=== PATIENT | female | born 1955 | race Caucasian/White ===

== ENCOUNTER 2017-12-23 07:17 | Day surgery (SDC) | payer OTHER ==
--- OUTSIDE RECORDS SUMMARY | 2017-12-23 07:22 | XMS REPORT | Continuity of Care Document ---
:1955 Author Organization Interface Problems Problem Status Onset Classification Date Comments Source Date Reported MENINGIOMA D32.0 Active 07/22/[address] GAMMA KNIFE Active 07/08/[address] LEFT NECK MASS Active 04/20/[address] R22.1 - Active 03/25/19 [facility] "LOCALIZED [address] SWELLING, MASS AND L" Hyperlipidemia Active Problem 07/30/2017 [facility], SHELBI Miller,[facility] Hypertension Active Problem 07/30/2017 [facility], SHELBI Miller,[facility] Pulmonary nodule Resolved Problem 07/30/2017 [facility], SHELBI Aleman,[facility] SHELBI Miller,[facility] Neck mass Active Problem 07/30/2017 [facility], [facility] SHELBI Miller,[facility] Depression Active Problem 07/30/2017 [facility], SHELBI Miller,[facility] Obesity Active Problem 07/30/2017 [facility], SHELBI Aleman,[facility] SHELBI Miller,[facility] Thyroid nodule Active Problem 07/30/2017 [facility], OPISimone Aleman,[facility] SHELBI Miller,[facility] Meningioma Active Problem 06/05/2016 SHELBI Aleman Medications Medication Details Route Status Patient Ordering Order Source Instructions Provider Date Sodium Chloride 0.154 1,000 mL, Inactive 07/26/ [facility] MEQ/ML Injectable Rate: 50 2017 Medical Solution ml/hr, [place] Infuse over: 20 hr, Route: IV, Dosing Weight 95.455 kg, Total Volume: 1,000, Priority: Routine, Start date: 07/26/16 11:18:00 CDT, Duration: 30 day, Stop date: 08/25/16 11:17:00 CDT Acetaminophen 325 MG 2 tab, Inactive 07/26/ [facility] / Hydrocodone Route: PO, 2017 Medical Bitartrate 5 MG Oral Drug Form: [place] Tablet TAB, Dosing Weight 95.455, kg, Q4H, PRN Pain Score 7-10, Start date: 07/26/16 11:18:00 CDT, Duration: 30 day, Stop date: 08/25/16 11:17:00 CDT Acetaminophen 325 mg, Inactive [facility] Route: PO, 2017 Medical Drug form: [place] TAB, Q4H, Dosing Weight 95.455, kg, PRN Pain Score 1-3, Start date: 07/26/16 11:18:00 CDT, Duration: 30 day, Stop date: 08/25/16 11:17:00 CDT Fentanyl 50 Inactive 07/26[facility] microgram, 2016 Medical Route: Center IVP, ONCALL, Dosing Weight 95.455, kg, Priority: Routine, Start date: 07/26/16 6:00:00 CDT, Duration: 1 doses or times Bacitracin 0.5 UNT/MG 1 appl, Inactive 07/26[facility] / Polymyxin B 10 Route: 2016 Medical UNT/MG Topical TOP, [place] O[facility]ment [facility] Drug form: OINT, Priority: Routine, Start date: 07/26/16 6:00:00 CDT, Duration: 1 doses or times Bupivacaine 30 mL, Inactive [facility] Hydrochloride 2.5 Route: 2017 Medical MG/ML / Epinephrine [facility] 0.005 MG/ML Dosing Injectable Solution Weight 95.455, kg, ONCALL, Start date: 07/26/16 6:00:00 CDT, Duration: 30 day, Stop date: 08/25/16 5:59:00 CDT Fentanyl 25 Inactive 07/26[facility] microgram, 2016 Medical Route: [place] IVP, Q1H, Dosing Weight 95.455, kg, PRN Pain Score 6-10, Priority: Routine, Start date: 07/26/16 5:20:00 CDT, Duration: 1 doses or times, Stop date: Limited # of times Dexamethasone 6 mg, Inactive 07/26[facility] Route: 2016 Medical IVP, Drug Center form: INJ, ONCE, Dosing Weight 95.455, kg, Start date: 07/26/16 5:20:00 CDT, Stop date: 07/26/16 5:20:00 CDT Promethazine 25 mg, Inactive 07/26[facility] Route: 2017 Medical IVPB, Q6H, Center Dosing Weight 95.455, kg, PRN Nausea & Vomiting, Start date: 07/26/16 5:20:00 CDT, Duration: 30 day, Stop date: 08/25/16 5:19:00 CDT Ondansetron 4 mg, Inactive 07/26[facility] Route: 2016 Medical IVP, Drug Center form: INJ, Q6H, Dosing Weight 95.455, kg, PRN Nausea & Vomiting, Start date: 07/26/16 5:20:00 CDT, Duration: 30 day, Stop date: 08/25/16 5:19:00 CDT Famotidine 20 mg, Inactive 07/26[facility] Route: 2016 Medical IVP, Drug Center form: INJ, ONCE, Dosing Weight 95.455, kg, Start date: 07/26/16 5:20:00 CDT, Stop date: 07/26/16 5:20:00 CDT Sodium Chloride 0.154 1,000 mL, Inactive [facility] MEQ/ML Injectable Rate: [address] [place] [address] Solution ml/hr, [place] Infuse over: 20 hr, Route: IV, Dosing Weight 95.455 kg, Total Volume: 1,000, Priority: Routine, Start date: 07/26/16 5:20:00 CDT, Duration: 30 day, Stop date: 08/25/16 5:19:00 CDT Zoloft 100 mg, Inactive 07/07[facility] Route: PO, 2016 Medical Drug form: [place] TAB, Daily, Dosing Weight 95.455, kg, Start date: 07/07/16 9:00:00 CDT, Duration: 30 day, Stop date: 08/05/16 9:00:00 CDT Omeprazole 40 mg, Inactive 07/07[facility] Route: PO, 2016 Medical Drug form: [place] DRC, Daily, Dosing Weight 95.455, kg, Start date: 07/07/16 9:00:00 CDT, Duration: 30 day, Stop date: 08/05/16 9:00:00 CDT Hydrochlorothiazide 1 tab, Inactive 07/07[facility] 12.5 MG / Lisinopril Route: PO, 2017 Medical 10 MG Oral Tablet Drug Form: [place] TAB, Dosing Weight 95.455, kg, Daily, Start date: 07/07/16 9:00:00 CDT, Duration: 30 day, Stop date: 08/05/16 9:00:00 CDT Lipitor 20 mg, No Longer [facility] Route: PO, Active 2016 Medical Drug form: Center TAB, Bedtime, Dosing Weight 95.455, kg, Start date: 07/06/16 21:00:00 CDT, Duration: 30 day, Stop date: 08/04/16 21:00:00 CDT neostigmine (ANES) Route: IV, Inactive [facility] Drug form: 2016 Medical INJ, ONCE, [place] Stop date: 07/06/16 12:16:00 CDT ondansetron (ANES) Route: IV, Inactive [facility] Drug form: 2016 Medical INJ, ONCE, [place] Stop date: 07/06/16 12:16:00 CDT glycopyrrolate (ANES) Route: IV, Inactive 07/06[facility] Drug form: 2016 Medical INJ, ONCE, [place] Stop date: 07/06/16 12:16:00 CDT fentaNYL (ANES) Route: IV, Inactive [facility] Drug form: 2016 Medical INJ, ONCE, [place] Stop date: 07/06/16 12:04:00 CDT dexamethasone (ANES) Route: IV, Inactive [facility] Drug form: 2016 Medical INJ, ONCE, [place] Stop date: 07/06/16 11:44:00 CDT phenylephrine (ANES) Route: IV, Inactive [facility] Drug form: 2016 Medical INJ, ONCE, [place] Stop date: 07/06/16 11:39:00 CDT ePHEDrine (ANES) Route: IV, Inactive [facility] Drug form: 2016 Medical INJ, ONCE, [place] Stop date: 07/06/16 11:39:00 CDT propofol (ANES) Route: IV, Inactive [facility] Drug form: 2016 Medical INJ, ONCE, [place] Stop date: 07/06/16 11:39:00 CDT rocuronium (ANES) Route: IV, Inactive 07/06[facility] Drug form: 2016 Medical INJ, ONCE, Center Stop date: 07/06/16 11:39:00 CDT lidocaine (ANES) Route: IV, Inactive 05/23[facility] Drug form: 2017 Medical INJ, ONCE, Center Stop date: 07/06/16 11:39:00 CDT midazolam (ANES) Route: IV, Inactive [facility] Drug form: 2017 Medical SOLN, Center ONCE, Stop date: 07/06/16 11:34:00 CDT acetaminophen (ANES) Route: IV, Inactive [facility] (ANES) Drug form: 2017 Medical INJ, Start Center date: 07/06/16 11:28:00 CDT, Stop date: 07/06/16 12:28:00 CDT sodium chloride 0.9% Route: IV, Inactive [facility] 100 ml INJ (ANES) + Drug form: 2017 Medical ceFAZolin (ANES) INJ, Start Center (ANES) date: 07/06/16 10:53:00 CDT, Stop date: 07/06/16 11:53:00 CDT LR 1000 mL INJ (ANES) Route: IV, Inactive [facility] Total 2017 Medical Volume: Center 1,000, Start date: 07/06/16 10:45:00 CDT, Stop date: 07/06/16 11:45:00 CDT ceFAZolin 2 gm, 100 Inactive [facility] mL, Route: 2017 Medical IVPB, Drug Center form: INJ, PRE OP, Start date: 07/06/16 4:00:00 CDT, Duration: 1 day, Stop date: 07/07/16 3:59:00 CDT, ABX Indication : Surgical Prophylaxi sNotes: Same as: Ancef omeprazole 40 mg oral 40 mg=1 On Hold [facility] delayed release cap, PO, 2016 Medical capsule Daily, # Center 30 cap, 0 Refill(s) Sertraline 100 MG 100 mg=1 On Hold [facility] Oral Tablet [Zoloft] tab, PO, 2017 Medical Daily, # Center 30 tab, 0 Refill(s) atorvastatin 20 MG 20 mg=1 On Hold [facility] Oral Tablet [Lipitor] tab, PO, 2017 Medical Bedtime, # Center 30 tab, 0 Refill(s) Hydrochlorothiazide 1 tab, PO, On Hold [facility] 12.5 MG / Lisinopril Daily, # 2017 Medical 10 MG Oral Tablet 30 tab, 0 Center Refill(s) Allergies, Adverse Reactions, Alerts Substance Category Reaction Severity Reaction Status Date Comments Source type Reported Immunizations Immunization Date Given Site Status Last Updated Comments Source Results Order Name Results Value Reference Date Interpretation Comments Source Range Brain w/wo Brain w/wo EXAM: MRI BRAIN WITH AND WITHOUT CONTRAST 07/13 [facility] contrast contrast - [place] [facility] This report was dictated by a [employer] Cook/Fellow. I have personally reviewed the images as well as the Resident's interpretation and agree with the findings. DATE: 07/13/2017 Read by: Davin Rodriguez MD Resident: Davin Rodriguez MD Dictated Date/time: 07/13/17 15:07 Electronically Signed by: Merrick Washington MD 07/13/17 17:06 FINAL REPORT INDICATION: 61-year-old female with meningioma, follow-up COMPARISON: MRI brain dated 01/19/2017 TECHNIQUE: Multiplanar, multisequence MRI of the brain with and without intravenous contrast. IV contrast: 20 mL Dotarem. FINDINGS: Again noted is a homogeneously enhancing extra-axial mass in the midline posterior fossa overlying the cerebellum. The mass involves the torcula. The dural venous sinuses remain patent. No restricted diffusion to suggest acute infarct. Global volume loss with associated compensatory ventricular dilation. No midline shift. Basilar cisterns are patent. The sella and its contents are norm al. Major intracranial flow voids are preserved. Orbits are unremarkable. Paranasal sinuses and mastoid air cells are clear. IMPRESSION: Stable size of posterior fossa meningioma involving the torcula. Patent dural venous sinuses Brain w/wo Brain w/wo EXAM: MRI BRAIN WITH AND WITHOUT CONTRAST 01/19 [facility] contrast contrast MRI /2016 - [facility] DATE: 01/19/2017 Read by: Merrick Washington MD Dictated Date/time: 01/19/17 12:31 Electronically Signed by: Merrick Washington MD 01/19/17 14:47 FINAL REPORT INDICATION: Meningioma, follow-up COMPARISON: Brain MRI studies dated 07/26/2016 and 05/07/2016 TECHNIQUE: Multiplanar, multisequence non-contrast MRI images of the brain. Multiplanar imaging is subsequently obtained following intravenous gadolinium contrast. IV contrast: 20 mL Dotarem FINDINGS: The overall size of the avidly enhancing extra-axial mass in the midline posterior fossa abutting the cerebellum is unchanged. The mass compresses the torcular, however, the immediately adjacent dural v enous sinuses including the straight sinus and bilateral transverse sinuses are patent. The appearance of the supratentorial brain unchanged. There is no diffusion restriction. The ventricles and basal cisterns are patent. The flow-voids of the proximal intracranial arteries are preserved. The mastoid air cells, visible paranasal sinuses, and orbits are unremarkable. There is no abnormal parenchymal or leptomeningeal enhancement. IMPRESSION: Stable meningioma. The meningioma compresses the torcular, however, the immediately adjacent dural venous sinuses including the straight sinus and bilateral transverse sinuses are patent. No acute brain parenchymal abnormality CHEM PANEL eGFR 82 07/26 Result Comment: The eGFR is calculated using the CKD-EPI formula. In most young, healthy individuals the eGFR will be >90 mL/ min/1.73m2. The eGFR declines with age. An eGFR of 60-89 may be normal in [facility] mL/min/1.7 some populations, particularly the elderly, for whom the CKD-EPI formula has not been extensively validated. Use of the eGFR is not recommended in the following populations: [address] Individuals with unstable creatinine concentrations, including patients and those with serious co-morbid conditions. Patients with extremes in muscle mass or diet. The data above are obtained from the National Kidney Disease Education Program (NKDEP) which additionally recommends that when the eGFR is used in patients with extremes of body mass index for purposes of drug dosing, the eGFR should be multiplied by the estimated BMI. CHEM PANEL POC 0.8 mg/dL 0.5 - 1.4 07/26 [facility] Creatinine /[address] [place] [address] Brain w Brain w EXAM: MRI BRAIN WITHOUT AND WITH CONTRAST 07/26 - [facility] contrast contrast MRI /2016 - [facility] DATE: 07/26/2016 Read by: Randall Constantino MD Dictated Date/time: 07/26/16 08:45 Electronically Signed by: Randall Constantino MD 07/26/16 08:56 FINAL REPORT INDICATION: 60 years old Female patient with history of Mass/Tumor - Mass/ Tumor. COMPARISON: MRI brain 05/07/2016 TECHNIQUE: Multiplanar, multisequence non-contrast MRI images of the brain. Multiplanar imaging is subsequently obtained following intravenous gadolinium contrast. FINDINGS: Redemonstration of avidly enhancing midline extra-axial mass along the inferior aspect of the torcula within the posterior fossa measuring 2.4 cm in maximum diameter compatible with meningioma. Partial involvement of the venous confluence at the torcula and proximal aspect of the straight venous sinus is noted. The remaining major brain venous sinuses are otherwise patent. IMPRESSION: Redemonstration of avidly enhancing midline extra-axial mass in the posterior fossa most compatible with meningioma. Partial involvement of the venous confluence at the torcula and proximal aspect of th e straight venous sinus is noted with no evidence of complete venous occlusion. This could be further evaluated with MR venogram with contrast. CHEM PANEL eGFR 68 07/06 Result Comment: The eGFR is calculated using the CKD-EPI formula. In most young, healthy individuals the eGFR will be >90 mL/ min/1.73m2. The eGFR declines with age. An eGFR of 60-89 may be normal in [facility] mL/min/1. some populations, particularly the elderly, for whom the CKD-EPI formula has not been extensively validated. Use of the eGFR is not recommended in the following populations: [address] Individuals with unstable creatinine concentrations, including patients and those with serious co-morbid conditions. Patients with extremes in muscle mass or diet. The data above are obtained from the National Kidney Disease Education Program (NKDEP) which additionally recommends that when the eGFR is used in patients with extremes of body mass index for purposes of drug dosing, the eGFR should be multiplied by the estimated BMI. CHEM PANEL AGAP 12.5 meq/L 10.0 - 07/06 [facility] 20.0 [facility] CHEM PANEL Calcium Lvl 9.6 mg/dL 8.5 - 10.5 07/06 [facility] CHEM PANEL CO2 28 meq/L 24 - 32 07/06 [facility] CHEM PANEL Glucose Lvl 102 mg/dL 70 - 99 07/06 [facility] CHEM PANEL Potassium 4.5 meq/L 3.5 - 5.1 07/06 [facility] CHEM PANEL Chloride Lvl 105 meq/L 95 - 109 07/06 [facility] CHEM PANEL BUN 15 mg/dL 7 - 22 07/06 [facility]2016 [facility] CHEM PANEL Sodium Lvl 141 meq/L 135 - 145 07/06 [facility] CHEM PANEL Creatinine 0.93 mg/dL 0.50 - 07/06 [facility] Lvl 1.40 [facility] HEMATOLOGY Eosinophils 0.2 K/CMM 0.0 - 0.5 07/06 [facility] HEMATOLOGY Monocytes # 0.8 K/CMM 0.0 - 0.8 07/06 [facility] HEMATOLOGY Basophils # 0.1 K/CMM 0.0 - 0.2 07/06 [facility] HEMATOLOGY Basophils 1.3 % 0.0 - 1.0 07/06 [facility] HEMATOLOGY Lymphocytes 2.1 K/CMM 1.0 - 5.5 07/06 [facility] HEMATOLOGY Segs-Bands # 6.5 K/CMM 1.5 - 8.1 07/06 [facility] HEMATOLOGY Segs 66.0 % 45.0 - 07/06 75.0 [facility] HEMATOLOGY Lymphocytes 21.9 % 20.0 - 07/06 40.0 [facility] HEMATOLOGY Monocytes 8.5 % 2.0 - 12.0 07/06 [facility] HEMATOLOGY Eosinophils 2.3 % 0.0 - 4.0 07/06 [facility] HEMATOLOGY MPV 8.7 fL 7.4 - 10.4 07/06 [facility] HEMATOLOGY Platelet 397 K/CMM 133 - 450 07/06 [facility] HEMATOLOGY RDW 14.6 % 11.5 - 07/06 14.5 [facility] HEMATOLOGY Hgb 15.8 g/dL 12.0 - 07/06 16.0 [facility] HEMATOLOGY Hct 47.2 % 36.0 - 07/06 48.0 [facility] HEMATOLOGY MCV 84.9 fL 80.0 - 07/06 98.0 [facility] HEMATOLOGY MCH 28.5 pg 27.0 - 07/06 31.0 [facility] HEMATOLOGY MCHC 33.5 g/dL 32.0 - 07/06 36.0 [facility] HEMATOLOGY RBC 5.56 M/CMM 4.20 - 07/06 [place] 5.40 [facility] HEMATOLOGY WBC 9.8 K/CMM 3.7 - 10.4 07/[address] Thyroid Thyroid Patient Name: EUGENIO SORENSON 06/02 - OPID biopsy w biopsy - [facility] guidance guidance US : 1955; Age: 60 years y/o Female US MR: [id number] Read by: Riky Marcano MD Dictated Date/time: 06/02/16 16:21 Electronically Signed by: Riky Marcano MD 06/02/16 16:22 FINAL REPORT Study: Thyroid biopsy w guidance US 06/02/2016 1:07 PM CDT Ordering Physician: Minal Alex MD Comparison: None Clinical Indication: E04.1 Nontoxic single thyroid nodule - LT THYROID NODULE; After obtaining informed consent and performing procedural timeout, the patient was placed in the supine position with the neck extended. The left side of the neck was prepped and draped in the usual st erile manner. Skin and underlying subcutaneous tissues were anesthetized with local anesthetic. Utilizing ultrasound guidance, 3 biopsy passes with a 25- gauge needle through 1.2 x 1.2 x 1.4 cm mixed cys tic and solid nodule at the mid to lower left thyroid lobe were undertaken. The biopsy material was submitted to pathology for analysis. The patient tolerated the procedure well and was given discharge instructions orally which were acknowledged by the patient. SL: [id number] Thyroid US Thyroid US PROCEDURE: THYROID ULTRASOUND 05/07 - [facility] CLINICAL INDICATION: E04.1. Thyroid nodule. Read by: Zeeshan Adams MD Dictated Date/time: 05/07/16 13:28 Electronically Signed by: Zeeshan Adams MD 05/07/16 13:35 FINAL REPORT COMPARISON: Neck CT 04/07/2016. TECHNIQUE: Sonographic evaluation of the thyroid gland is performed with marsh scale and supplemental Doppler color flow imaging. Static images are submitted. FINDINGS: There is normal thyroid parenchymal echotexture. There is no demonstrable parathyroid adenoma. RIGHT THYROID LOBE: The right thyroid lobe is unremarkable. The right thyroid lobe measures 3.5 x 1.1 x 1.6 cm (length x AP x width). LEFT THYROID LOBE: There is a 1.4 x 1.1 x 1.2 cm complex solid and cystic nodule in the mid to inferior left thyroid lobe corresponding to the CT abnormality. The left thyroid lobe measures 4.6 x 1.3 x 1.4 cm (length x AP x width). THYROID ISTHMUS: The thyroid isthmus is unremarkable. The maximal AP dimension of the thyroid isthmus measures 0.27 cm. IMPRESSION: 1. There is a 1.4 cm complex solid and cystic nodule in the left thyroid lobe. Consider ultrasound-guided fine-needle biopsy. 2. Otherwise unremarkable thyroid ultrasound. SL: 15 Brain w/wo Brain w/wo PROCEDURE: MAGNETIC RESONANCE IMAGING OF THE BRAIN 05/07 - OPI contrast contrast MRI /2016 - [facility] CLINICAL INDICATION: D32.9. Benign neoplasm of meninges, unspecified. Read by: Zeeshan Adams MD Dictated Date/time: 05/07/16 16:52 Electronically Signed by: Zeeshan Adams MD 05/09/16 17:44 FINAL REPORT COMPARISON: Neck CT 04/07/2016. TECHNIQUE: Unenhanced and enhanced axial, coronal and sagittal MR images of the brain were performed. Intravenous contrast: 20 mL of Dotarem. FINDINGS: There is a mildly lobular enhancing extra-axial mass in the mid posterior aspect of the posterior fossa abutting the cerebellum corresponding to the CT abnormality measuring approximately 2.4 cm superior to inferior x 2.7 cm transversely x 2.3 cm anterior to posterior. There is an approximately 6 mm calcification within the mass. The primary consideration is a meningioma. The brain volume is age-appropriate. There is a 4 mm focus of T2 FLAIR hyperintensity in the white matter of the left frontal lobe. Primary considerations include sequela of migraines or chronic small v essel ischemic disease. There is no demonstrable acute infarction, hydrocephalus, hemorrhage, extra-axial fluid collection, midline shift or herniation. A lipoma adjacent to the posterior margin of the left sternocleidomastoid muscle is partially imaged. There is segmental mucosal thickening in the bilateral ethmoid sinuses and the inferior aspects of t he bilateral maxillary sinuses. There is no demonstrable abnormality of the orbits, pituitary fossa, internal auditory canals, mastoids, craniocervical junction or calvarium. Flow is demonstrated in the major arteries and venous sinuses. The right vertebral artery is dominant. IMPRESSION: 1. There is a 2.7 cm enhancing extra-axial mass in the mid posterior aspect of the posterior fossa abutting the cerebellum. The primary consideration is a meningioma. 2. Subcentimeter focus of T2 FLAIR hyperintensity in the white matter of the left frontal lobe. Primary considerations include sequela of migraines or chronic small vessel ischemic disease. 3. There is a lipoma adjacent to the posterior margin of the left sternocleidomastoid muscle, incompletely imaged on this examination. Please refer to the report of the neck CT performed 04/07/2016. 4. Chronic ethmoid and maxillary sinusitis. SL: 15 Neck soft Neck soft PROCEDURE: NECK CT 04/07 - OP[facility] tissue w tissue w - [place] contrast contrast CT CT CLINICAL INDICATION: R22.1, D17.9. Mass left posterior triangle. Read by: Zeeshan Adams MD Dictated Date/time: 04/07/16 16:33 Electronically Signed by: Zeeshan Adams MD 04/08/16 09:04 FINAL REPORT COMPARISON: None. TECHNIQUE: Enhanced axial helical CT images of the neck were performed with a multidetector CT. Coronal and sagittal reformatted images are available. Intravenous contrast: [address] Radiation Dose DLP 458.12 mGy-cm. FINDINGS: SALIVARY GLANDS: The parotid and submandibular glands are unremarkable. THYROID GLAND: There is a 1.2 cm low-density lesion in the inferior aspect of the left thyroid lobe. The thyroid gland is otherwise unremarkable. LYMPH NODES: There is no pathologic lymphadenopathy. PARANASAL SINUSES AND NASAL CAVITY: There is segmental mucosal thickening in the inferior aspects of both maxillary sinuses and in the left sphenoid sinus. There is mild rightward deviation of the nasal septum. SUPRAHYOID AND INFRAHYOID NECK: There is no demonstrable abnormality of the larynx, pharynx or oral cavity. Evaluation of the oral cavity is somewhat limited due to streak artifact from the patient's dental work. ORBITS: The visualized orbits are unremarkable. VASCULAR: There is mild calcification of the transverse thoracic aorta, proximal left subclavian artery, right carotid bulb and the cavernous segment of the left internal carotid artery. The right vertebral artery is dominant. OSSEOUS SKELETON: There is grade 1 anterolisthesis of C2 on C3 and C3 on C4. There are degenerative changes of the spine. There is bony neural foraminal narrowing from C3-C4 through C6-C7. A posterior c entral disc protrusion is suspected at C4-C5. There is mild spinal stenosis at C5-C6. These findings would be better assessed with cervical spine magnetic resonance imaging. LUNGS: There is an approximately 7 mm noncalcified indeterminant pulmonary nodule in the superior segment of the left lower lobe (image 106 series 2). There is minimal scarring in both lung apices. ADDITIONAL FINDINGS: An external marker was placed at the location of the palpable abnormality identified by the patient in the left neck. In this location there is a lipoma with a thin peripheral soft tissue rim adjacent to the posterior margin of the left sternocleidomastoid muscle measuring maximal dimensions of approximately 7 cm superior to inferior by 3 cm anterior to posterior by 2.5 cm transversely ( images 32 through 55 series 2). There is an approximately 2 cm indeterminate masslike focus of intermediate density with a central 9 mm calcification adjacent to the mid posterior margin of the cerebellum possibly a meningioma, incomp letely assessed on this examination (images 7 through 13 series 2). There is no demonstrable abnormality of the visualized mastoids or middle ear cavities. IMPRESSION: 1. A 7 cm lipoma adjacent to the posterior margin of the left sternocleidomastoid muscle corresponds to the palpable abnormality identified by the patient. 2. There is a 1.2 cm low-density lesion in the left thyroid lobe. Further evaluation may be obtained with a thyroid ultrasound. 3. Chronic sinusitis. 4. Deviated nasal septum. 5. Mild arterial vascular disease. 6. Osseous findings as described above. 7. There is a 7 mm noncalcified indeterminant pulmonary nodule in the superior segment of the left lower lobe. Based on the Fleischner Society recommendations an initial follow-up chest CT is recommende d in 6-12 months for a low risk patient and in 3-6 months for a high risk patient. 8. There is a 2 cm indeterminate masslike focus in the mid posterior aspect of the posterior fossa possibly a meningioma, incompletely assessed on this examination. Further evaluation may be obtained wi unenhanced and enhanced magnetic resonance imaging of the brain. SL: 15 Vital Signs Vital Sign Value Date Comments Source BMI Calculated 36.88 07/27/2017 [facility] Height 167.64 cm 07/27/2017 [facility] Weight 103.636 07/27/2017 [facility] Systolic (mm Hg) 128 07/27/2017 [facility] Diastolic (mm Hg) 74 07/27/2017 [facility] Heart Rate 61 07/27/2017 [facility] Height 167.64 cm 01/26/2017 [facility] Weight 103.727 01/26/2017 [facility] BMI Calculated 36.91 01/26/2017 [facility] Heart Rate 62 01/26/2017 [facility] Systolic (mm Hg) 131 01/26/2017 [facility] Diastolic (mm Hg) 77 01/26/2017 [facility] Systolic (mm Hg) 169 07/26/2016 [facility] Diastolic (mm Hg) 72 07/26/2016 [facility] Systolic (mm Hg) 169 07/26/2016 [facility] Diastolic (mm Hg) 72 07/26/2016 [facility] Systolic (mm Hg) 120 07/26/2016 [facility] Diastolic (mm Hg) 75 07/26/2016 [facility] Respitory Rate 32 07/26/2016 [facility] Respitory Rate 10 07/26/2016 [facility] Respitory Rate 12 07/26/2016 [facility] Height 167.64 cm 07/26/2016 [facility] BMI Calculated 33.97 07/26/2016 [facility] Weight 95.455 07/26/2016 [facility] BMI Calculated 33.97 07/22/2016 [facility] Height 167.64 cm 07/22/2016 [facility] Weight 95.455 07/22/2016 [facility] Weight 95.455 07/21/2016 [facility] Respitory Rate 18 07/21/2016 [facility] Temperature Oral (F) 97.7 F 07/21/2016 [facility] Systolic (mm Hg) 148 07/21/2016 [facility] Diastolic (mm Hg) 71 07/21/2016 [facility] Respitory Rate 16 07/06/2016 [facility] Systolic (mm Hg) 154 07/06/2016 [facility] Diastolic (mm Hg) 72 07/06/2016 [facility] Respitory Rate 16 07/06/2016 [facility] Systolic (mm Hg) 126 07/06/2016 [facility] Diastolic (mm Hg) 63 07/06/2016 [facility] Respitory Rate 16 07/06/2016 [facility] Systolic (mm Hg) 127 07/06/2016 [facility] Diastolic (mm Hg) 64 07/06/2016 [facility] Weight 95.455 07/06/2016 [facility] Height 167.64 cm 07/06/2016 [facility] BMI Calculated 33.97 07/06/2016 [facility] Heart Rate 80 07/06/2016 [facility] Height 167.64 cm 06/24/2016 [facility] BMI Calculated 32.35 06/24/2016 [facility] Weight 90.909 06/24/2016 [facility] Encounters Location Location Encounter Encounter Reason Attending ADM DC Status Source Details Type Number For Provider Date Date Visit [facility] Outpt Diag [id number] Minal 04/07 04/08 [facility] [id number] Minal 05/07 05/08 [facility] [id number] [facility] 06/01 [facility] Outpt Diag [id number] Minal 06/02 06/03 [facility] Surgery [id number] Minal 07/06 07/07 [facility] Outpatient [id number] Jignesh 07/21 07/22 [facility] [id number] [facility] 07/26 07/26 [facility] [place] /2016 [facility] Phone [id number] 01/13 01/15 [facility] Outpt Diag [id number] Mark 01/19 01/20 [facility] [id number] MARK 01/26 [facility] Outpatient [id number] Mark 01/26 01/27 [facility] Outpt Diag [id number] Mark 07/13 07/14 [facility] Outpatient [id number] MARK 07/[address] [facility] Outpatient [id number] Cr 07/27 07/28 [facility] [id number] MARK 01/25 Active [facility] Procedures Procedure Code Date Perfomer Comments Source Biopsy of thyroid [id number] [facility] Carpal tunnel [id number] [facility] Hysterectomy [id number] [facility] Suspension [facility] [id number] [facility] bladder Carpal tunnel [id number] [facility] [place] [facility]sterectomy [id number] [facility] [place] Suspension of [id number] [facility] [place] Biopsy of thyroid [id number] [facility] Carpal tunnel [id number] [facility] [place] [facility]sterectomy [id number] [facility] [place] Suspension of [id number] [facility] bladder [place] Biopsy of thyroid [id number] [facility] Carpal tunnel [id number] [facility] Hysterectomy [id number] [facility] Suspension of [id number] [facility]
--- OUTSIDE RECORDS SUMMARY | 2017-12-23 07:23 | XMS REPORT ---
:1955 Author Organization eClinicalWorks Care Team Providers Name Role Phone Nahid Rajan Provider Role Unavailable Allergies No Known Allergies Problems Problem Type Condition Code Onset Dates Condition Status Problem Essential thrombocytosis D47.3 Active Problem Osteoarthritis M19.90 Active Problem Pulmonary nodule R91.1 Active Problem Thyroid nodule E04.1 Active Problem Hyperlipidemia, mixed E78.2 Active Problem Degenerative joint disease involving M15.9 Active multiple joints on both sides of body Problem Depression with anxiety F41.8 Active Problem Gastro-esophageal reflux disease K21.9 Active without esophagitis Medications Medication Code System Code Instructions Start End Date Status Dosage Date Zoloft [facility] 79953639771 100 MG Orally Active 1 tablet Once a day Lipitor [facility] 11295493519 20 MG Orally Once Active 1 tablet a day Omeprazole [facility] 93785027764 40 MG Orally Once Active 1 capsule a day Results No Known Results Summary Purpose eClinicalWorks Submission
--- OUTSIDE RECORDS SUMMARY | 2017-12-23 07:23 | XMS REPORT ---
:1955 Author Organization e[employer]Works Care Team Providers Name Role Phone WhitfieldRajan Provider Role Unavailable Allergies, Adverse Reactions, Alerts Substance Reaction Event Type N.K.D.A. Info Not Available Non Drug Allergy Problems Problem Type Condition Code Onset Dates Condition Status Problem Degenerative joint disease involving M15.9 Active multiple joints on both sides of body Problem Gastro-esophageal reflux disease K21.9 Active without esophagitis Problem Hyperlipidemia, mixed E78.2 Active Problem Adult BMI 38.0-38.9 kg/sq m Z68.38 Active Problem Essential thrombocytosis D47.3 Active Problem HTN, goal below 140/90 I10 Active Problem Pulmonary nodule R91.1 Active Problem Depression with anxiety F41.8 Active Problem Thyroid nodule E04.1 Active Problem Osteoarthritis M19.90 Active Assessment Adult BMI 38.0-38.9 kg/sq m Z68.38 Active Assessment Need for Tdap vaccination Z23 Active Assessment Screening mammogram, encounter for Z12.31 Active Assessment Screening for colon cancer Z12.11 Active Assessment Need for influenza vaccination Z23 Active Assessment Encounter for preventative adult Z00.00 Active health care examination Assessment Encounter for screening for other Z11.59 Active viral diseases Medications Medication Code System Code Instructions Start End Date Status Dosage Date Ultram [facility] 06842755902 50 MG Orally Active 1 tablet as every 6 hrs needed Omeprazole ND 01169300245 40 MG Orally Active 1 capsule Once a day Zoloft ND 74389267044 100 MG Orally Active 1 tablet Once a day Zestoretic [facility] 09420743656 10-12.5 MG Active 1 tablet Orally Once a day Lipitor ND 98366103894 20 MG Orally Active 1 tablet Once a day Results No Known Results Immunizations Vaccine Administration Date TDAP > 7 Years-Adacel Nov 21, 2017 Afluria Nov 21, 2017 Summary Purpose eClinicalWorks Submission
--- OUTSIDE RECORDS SUMMARY | 2017-12-23 07:23 | XMS REPORT ---
:1955 Author Organization eClinicalWorks Care Team Providers Name Role Phone Rajan Whitfield Provider Role Unavailable Allergies, Adverse Reactions, Alerts Substance Reaction Event Type N.K.D.A. Info Not Available Non Drug Allergy Problems Problem Type Condition Code Onset Dates Condition Status Assessment Abscess of buttock, left L02.31 Active Problem Essential thrombocytosis D47.3 Active Problem Osteoarthritis [...] Start End Date Status Dosage Date Ultram [facility] 34466036318 50 MG Orally Active 1 tablet as every 6 hrs needed Zoloft ND 85724743151 100 MG Orally Active 1 tablet Once a day Lipitor ND 48332447607 20 MG Orally Active 1 tablet Once a day Zestoretic ND 83835926558 10-12.5 MG Active 1 tablet Orally Once a day Bactrim DS ND 91935820552 800-160 MG Oct 07, Oct 17, Active 1 tablet Orally Twice a 2017 2017 day Omeprazole ND 26008276548 40 MG Orally Active 1 capsule Once a day Results No Known Results Summary Purpose eClinicalWorks Submission
--- OUTSIDE RECORDS SUMMARY | 2017-12-23 07:23 | XMS REPORT ---
:1955 Author Organization eClinicalWorks Care Team Providers Name Role Phone Rajan Whitfield Provider Role Unavailable Allergies No Known Allergies Problems Problem Type Condition Code Onset Dates Condition Status Problem Essential thrombocytosis D47.3 Active Assessment Acute cystitis without hematuria N30.00 Active Problem Osteoarthritis M19.90 Active Problem Pulmonary nodule R91.1 Active Problem Thyroid nodule E04.1 Active Problem Hyperlipidemia, mixed E78.2 Active Problem Degenerative joint disease involving M15.9 Active multiple joints on both sides of body Problem Depression with anxiety F41.8 Active Problem Gastro-esophageal reflux disease K21.9 Active without esophagitis Medications Medication Code System Code Instructions Start End Date Status Dosage Date Pyridium [facility] 67050479276 200 MG Orally July 07, July 09, Active 1 tablet Three times a 2017 2017 after meals day Macrobid [facility] 04368673690 100 MG Orally July 07, July 12, Active 1 capsule every 12 hrs 2017 2017 with food Zestoretic [facility] 17292668194 10-12.5 MG Active 1 tablet Orally Once a day Zoloft [facility] 19485133681 100 MG Orally Active 1 tablet Once a day Ultram [facility] 71265465992 50 MG Orally Active 1 tablet as every 6 hrs needed Lipitor [facility] 95520538661 20 MG Orally Active 1 tablet Once a day Omeprazole [facility] 23348133831 40 MG Orally Active 1 capsule Once a day Results Name Result Date Reference Range Unit Abnormality Flag Urine Dip Stick ----SP. Gr 1.010 20170707 ----pH 6.5 20170707 ----Ketone Neg 20170707 ----Glucose Neg 20170707 ----Blood 2+ 20170707 ----Protein 1+ 20170707 ----Nitrite Pos 20170707 ----Leukocytes 3+ 20170707 Summary Purpose eClinicalWorks Submission
[2017-12-23] MEDS ORDERED: Ringers Lactate 1,000 ML IV ONE (07:58)
[2017-12-23] MEDS ORDERED: SIMETHICONE 40 MG/ 0.6 ML ONE (08:15)
[2017-12-23] MEDS ORDERED: PROPOFOL 200 MG/20 ML VIAL IV ONE (08:30)
[2017-12-23] MEDS ORDERED: LIDOCAINE 1% MPF 2 ML AMPULE ONE (08:30)
--- NOTE | 2017-12-23 08:54 | ENDO RPT ---
[address], [address] COLONOSCOPY PROCEDURE REPORT EXAM DATE: 12/23/2017 PATIENT NAME: Erika Velazquez MR #: [id number] BIRTHDATE: 1955 ATTENDING: Dirk Moreira DR STATUS: outpatient TYPING CHECKER: Jose Alvarado and Minal Samuels RN INDICATIONS: The patient is a 62 yr old Female here for a colonoscopy due to colon cancer screening PROCEDURE PERFORMED: Colonoscopy with biopsy - cold polypectomy MEDICATIONS: Per Anesthesia. ESTIMATED BLOOD LOSS: None CONSENT: The patient understands the risks and benefits of the procedure and understands that these risks include, but are not limited to: sedation, allergic reaction, infection, perforation and/or bleeding. Alternative means of evaluation and treatment include, among others: physical exam, x-rays, and/or surgical intervention. The patient elects to proceed with this endoscopic procedure. DESCRIPTION OF PROCEDURE: During intra-op preparation period all mechanical medical equipment was checked for proper function. Hand hygiene and appropriate measures for infection prevention was taken. Procedure, possible complications, alternatives including, but not limited to possibility of bleeding, perforation, tear, infection, sepsis, need for surgery, need for blood transfusion, were explained to the patient. After the risks, benefits and alternatives of the procedure were thoroughly explained, Informed consent was verified, confirmed and timeout was successfully executed by the treatment team. The patient was placed in the left lateral position. A digital rectal exam was performed and revealed internal hemorrhoids. After appropriate level of anesthesia, the scope was passed. The EC-[id number] ([id number]) endoscope was introduced through the anus and advanced to the cecum, which was identified by both the appendix and ileocecal valve. The quality of the prep was fair. The instrument was then slowly withdrawn as the colon was fully examined. Scope withdrawal time was 1 minutes. COLON FINDINGS: A small smooth sessile polyp with a mucous cap was found in the sigmoid colon. A polypectomy was performed with cold forceps. The resection was complete, the polyp tissue was completely retrieved and sent to histology. Small internal hemorrhoids were found. Retroflexed views revealed no abnormalities. The scope was then completely withdrawn from the patient and the procedure terminated. ADVERSE EVENTS: There were no complications. IMPRESSIONS: 1. Small sessile polyp was found in the sigmoid colon; polypectomy was performed with cold forceps 2. Small internal hemorrhoids RECOMMENDATIONS: 1. fiber rich diet 2. await biopsy results 3. follow-up: office 2 week(s) 4. yearly hemoccult starting in 4 years RECALL: Return in 5 year(s) for Colonoscopy, pending biopsy results. Pending Biopsy Dirk Moreira DR eSigned: Dirk Moreira DR 12/23/2017 8:53 AM cc: CPT CODES: ICD9 CODES: PATIENT NAME: Erika Velazquez MR#: [id number]
== END 2017-12-23 09:31 | disposition home or self-care (01) ==
LOC: OR 07:17
PROVIDERS: ATTEND Surgery
PROC: 0DBN8ZX Excision of Sigmoid Colon, Via Natural or Artificial Opening Endoscopic, Diagnostic (ICD-10-PCS; principal; 2017-12-23 08:30)
DX: Z12.11 Encounter for screening for malignant neoplasm of colon (principal); K63.5 Polyp of colon; K64.8 Other hemorrhoids; F41.8 Other specified anxiety disorders; E78.2 Mixed hyperlipidemia; K21.9 Gastro-esophageal reflux disease without esophagitis; I10 Essential (primary) hypertension; M19.90 Unspecified osteoarthritis, unspecified site; Z82.49 Family history of ischemic heart disease and other diseases of the circulatory system; Z80.3 Family history of malignant neoplasm of breast
CPT/HCPCS: 88305; J2001; J2704